=== PATIENT | male | born 1955 | race Caucasian/White ===

== ENCOUNTER → 2019-06-08 | Outpatient (CLI) | payer MEDICARE, BC ==
--- NOTE | 2019-06-08 12:51 | US ---
EXAMINATION TYPE: US kidneys/renal and bladder DATE OF EXAM: 06/08/2019 COMPARISON: NONE CLINICAL HISTORY: N18.2 chronic kidney disease. No pain. Patient states a lesion was seen on kidney from another facility EXAM MEASUREMENTS: Right Kidney: 10.1 x 4.9 x 5.2 cm Left Kidney: 10.2 x 4.9 x 5.1 cm Right Kidney: lower pole cystic appearing lesions, largest = 2.4 x 2.3 cm. 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 Left Kidney: upper pole cystic appearing lesion - 3.1 x 2.6 x 2.7 cm Bladder: distended, wnl Bilateral Jets seen There is no evidence for hydronephrosis at this point in time. No nephrolithiasis is seen. The urina ry bladder is anechoic. Bilateral ureteral jets are seen. 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 No hydronephrosis of either kidney.
== END | disposition home or self-care (01) ==
LOC: RADUSWWP 12:05
PROVIDERS: ATTEND Urology
DX: N28.1 Cyst of kidney, acquired (principal); N18.2 Chronic kidney disease, stage 2 (mild)
CPT/HCPCS: 76770